=== PATIENT | female | born 1980 | race African-American/Black ===

== ENCOUNTER 2024-07-25 15:04 | Emergency (ER) | payer BC ==
[2024-07-25 16:07] LABS: Absolute Basophils 0.1 K/uL (0-0.5); Absolute Eosinophils 0.2 K/uL (0-0.5); Absolute Lymphocytes (CBC) 1.4 K/uL (0.7-4.9); Absolute Monocytes 0.4 K/uL (0.1-1.3); Absolute Neutrophil 4.4 K/uL (1.8-8.0); Basophils % 1.4 % (0-1.3); Eosinophils % 3.2 % (0-4.4); Hematocrit 31.4 % (36.0-45.0); Hemoglobin 9.8 g/dL (12.0-15.0); Lymphocytes % 21.6 % (15.3-44.8); MCH 21.9 pg (27.0-35.0); MCHC 31.2 g/dL (32.0-36.0); MCV 70.1 fL (80-100); MPV 8.3 fL (7.6-11.3); Monocytes % 5.5 % (3.3-12.3); Neutrophils % 68.3 % (41.7-73.7); Nucleated Red Blood Cells % 0.2 % (0-0); Platelets 287 thou/uL (152-406); RBC Red Blood Cell Count 4.47 M/uL (3.86-4.86); Red Cell Distribution Width 16.3 % (12.1-15.2)
[2024-07-25 16:27] LABS: Anion Gap 8.9 mEq/L (5.0-15.0); Magnesium 2.2 mg/dL (1.6-2.4); Potassium 3.9 mEq/L (3.5-5.1); Troponin High Sensitivity 12.5 pg/mL (<58.9)
[2024-07-25] MEDS ORDERED: LOSARTAN POTASSIUM 50 MG TABLET ONE (16:48)
[2024-07-25 17:33] LABS: Blood Morphology Comment NOTED (NOT SEEN); Hypochromasia 1+; Ovalocytes 1+; Platelet Estimate ADEQ; Poikilocytosis 1+; White Blood Cell Scan OK (OK)
--- NOTE | 2024-07-25 17:52 | RAD REPORT ---
EXAMINATION: ONE VIEW CHEST XR CLINICAL INDICATION: Female, 43 years old.,CHEST PAIN TECHNIQUE: Frontal chest projection is submitted. Examination is limited by patient positioning and t echnique. COMPARISON: No prior exam. FINDINGS: The lungs are well inflated and clear, although superimposition of soft tissues somewhat limits evalu ation. No pneumothorax or sizable effusion. The heart is upper limit of normal in size. Mediastinal contours are unremarkable. IMPRESSION: No acute intrathoracic abnormalities. Heart is at the upper limit of normal in size.
--- NOTE | 2024-07-25 18:53 | EDPHYS ---
Physician Documentation [facility] Name: Dulce Hernandez Age: 43 yrs Sex: Female : 1980 Arrival Date: 07/25/2024 Time: 15:04 Bed 8 Private MD: ED Physician Jean Torres HPI: 07/25 19:08 This 43 yrs old Black Female presents to ER via EMS with complaints of Chest Pain. ms3 19:08 Dulce Hernandez is a 43-year-old female who presented to the Emergency Department with ms3 chest pain. She was brought in via EMS after experiencing the pain that began last night. She initially went to a clinic where her blood pressure was recorded as 206/120 mmHg. She has a history of hypertension, which she managed previously with Losartan 100 mg daily. However, she discontinued the medication a year ago, opting for herbal remedies in an attempt to manage her blood pressure naturally. She reports that her chest pain is centrally located and exacerbates with movement, currently rating it as a 3 out of 10 in severity.. 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 - Infectious Disease History:: Denies. - Social history:: Smoking status: Patient denies any tobacco usage or history of. ROS: 19:08 Constitutional: Negative for fever, and chills. Neck: Negative for injury, pain, and ms3 swelling, 19:08 Respiratory: Negative for shortness of breath, cough, wheezing, and pleuritic chest pain, Abdomen/GI: Negative for abdominal pain, nausea, vomiting, diarrhea, and constipation, MS/Extremity: Negative for injury and deformity, Skin: Negative for injury, rash, and discoloration, 19:08 Cardiovascular: Positive for chest pain, Exam: 19:08 Constitutional: This is a well developed, well nourished patient who is awake, alert, ms3 and in no acute distress. Chest/axilla: Normal chest wall appearance and motion. Nontender with no deformity. Cardiovascular: Regular rate and rhythm with a normal S1 and S2. No gallops, murmurs, or rubs. Normal PMI, no JVD. No pulse deficits. Respiratory: Lungs have equal breath sounds bilaterally, clear to auscultation and percussion. No rales, rhonchi or wheezes noted. No increased work of breathing, no retractions or nasal flaring. Abdomen/GI: Soft, non-tender, with normal bowel sounds. No distension or tympany. No guarding or rebound. No evidence of tenderness throughout. Skin: Warm, dry with normal turgor. Normal color with no rashes, no lesions, and no evidence of cellulitis. MS/ Extremity: Pulses equal, no cyanosis. Neurovascular intact. Full, normal range of motion. Neuro: Awake and alert, GCS 15, oriented to person, place, time, and situation. Cranial nerves II-XII grossly intact. Motor strength 5/5 in all extremities. Sensory grossly intact. Cerebellar exam normal. Normal gait. 19:13 ECG was reviewed by the Attending Physician. ms3 Vital Signs: 15:30 BP 188 / 99; Pulse 71; Resp 18; Temp 97.8(TE); Pulse Ox 100% on R/A; Weight 135.17 kg; hb Height 5 ft. 5 in. ; Pain 2/10; 17:00 BP 175 / 91; Pulse 72; Resp 15; Pulse Ox 98% on R/A; hb 17:38 BP 175 / 99; Pulse 73; Resp 16; Pulse Ox 99% on R/A; hb 15:30 Body Mass Index 49.59 (135.17 kg, 165.1 cm) hb 15:30 Pain Scale: Adult hb MDM: 15:27 Medical Screening Exam initiated ms3 19:08 Differential diagnosis: abnormal EKG, acute myocardial infarction, anxiety. HEART ms3 Score: History: Slightly Suspicious (0), ECG: Normal (0), Age: < or = 45 years (0), Risk Factors: 1 or 2 risk factors (1), Troponin: < or = 1 x Normal Limit (0), Total Score = 1. Data reviewed: vital signs, nurses notes, lab test result(s), EKG, radiologic studies, and as a result, I will discharge patient. Consideration of Admission/Observation Escalation of care including admission/observation considered. HEART Score = 1.. I considered the following discharge prescriptions or medication management in the emergency department Medications were administered in the Emergency Department. See MAR. Independent interpretation of the following test(s) in the Emergency Department EKG: See my EKG interpretation above. Counseling: I had a detailed discussion with the patient and/or guardian regarding the historical points, exam findings, and any diagnostic results supporting the discharge/admit diagnosis, the need for outpatient follow up, to return to the emergency department if symptoms worsen or persist or if there are any questions or concerns that arise at home. Special discussion: Based on the patient's history, exam, and Dx evaluation, there is no indication for emergent intervention or inpatient Tx. It is understood by the patient/guardian that if the Sx's persist or worsen they need to return immediately for re-evaluation. ED course: Discussed labs, chest x-ray, EKG findings with patient. Patient given prescription for his losartan 50 mg daily. Patient to follow-up with primary care physician in 2 to 3 days for reevaluation. All questions were answered. Return precautions discussed include worsening symptoms, or any other concerns. 07/25 15:27 Order name: Basic Metabolic Panel; Complete Time: 16:43 ms3 07/25 15:27 Order name: CBC with Diff; Complete Time: 17:49 ms3 07/25 15:27 Order name: Magnesium; Complete Time: 16:43 ms3 07/25 15:27 Order name: Troponin HS; Complete Time: 16:43 ms3 07/25 17:33 Order name: CBC Smear Scan; Complete Time: 17:49 EDMS 07/25 15:27 Order name: XRAY Chest (1 view); Complete Time: 18:04 ms3 07/25 15:27 Order name: EKG; Complete Time: 15:27 ms3 07/25 15:27 Order name: Cardiac monitoring; Complete Time: 16:19 ms3 07/25 15:27 Order name: EKG - Nurse/Tech; Complete Time: 16:19 ms3 07/25 15:27 Order name: IV Saline Lock; Complete Time: 16:19 ms3 07/25 15:27 Order name: Labs collected and sent; Complete Time: 16:19 ms3 07/25 15:27 Order name: O2 Per Protocol; Complete Time: 16:19 ms3 07/25 15:27 Order name: O2 Sat Monitoring; Complete Time: 16:19 ms3 EC:13 Rate is 71 beats/min. Rhythm is regular. Right axis deviation noted. IL interval is ms3 normal. QRS interval is normal. Clinical impression: NSR w/ Non-specific ST/T Changes. Interpreted by me. Reviewed by me. Administered Medications: 16:53 Drug: Losartan PO 50 mg PO once Route: PO; hb 19:02 Follow up: Response: No adverse reaction bp Disposition Summary: 07/25/24 18:52 Discharge Ordered Notes: Location: Home ms3 Condition: Stable ms3 Diagnosis - Chest pain, unspecified ms3 - Essential (primary) hypertension ms3 Followup: ms3 - With: Heath Cormier DO - When: 2 - 3 days - Reason: Recheck today's complaints Discharge Instructions: - Discharge Summary Sheet ms3 - Nonspecific Chest Pain, Adult ms3 - Hypertension, Adult, [id number] ms3 - DASH Eating Plan ms3 Forms: - Medication Reconciliation Form ms3 - Antibiotic Education ms3 - Prescription Opioid Use ms3 - Patient Portal Instructions ms3 - Leadership Thank You Letter ms3 - Work release form rv1 Prescriptions: - losartan 50 mg Oral tablet - take 1 tablet ORAL route once; 30 tablet; Refills: 0, Product Selection ms3 Permitted Signatures: Dispatcher [employer] EDMS Candida Browne RN RN Jean Torres DO DO ms3 Mesfin Batres RN bp Corrections: (The following items were deleted from the chart) 15:27 15:27 BASIC METABOLIC PANEL+C.LAB.BRZ ordered. EDMS EDMS 15:27 15:27 CBC+H.LAB.BRZ ordered. EDMS EDMS 15:27 15:27 MAGNESIUM+C.LAB.BRZ ordered. EDMS EDMS 15:27 15:27 Troponin High Sensitivity+C.LAB.BRZ ordered. EDMS EDMS
--- NOTE | 2024-07-25 18:53 | ER ---
Nurse's Notes [facility] Name: Dulce Hernandez Age: 43 yrs Sex: Female : 1980 Arrival Date: 07/25/2024 Time: 15:04 Bed 8 Private MD: Diagnosis: Chest pain, unspecified;Essential (primary) hypertension Presentation: 07/25 15:30 Chief complaint: EMS states: Intermittent midsternal chest pain that started last hb night, became worse this afternoon. Coronavirus screen: At this time, the client does not indicate any symptoms associated with coronavirus-19. Ebola Screen: No symptoms or risks identified at this time. Initial Sepsis Screen: Does the patient meet any 2 criteria? No. Patient's initial sepsis screen is negative. Does the patient have a suspected source of infection? No. Patient's initial sepsis screen is negative. Risk Assessment: Do you want to hurt yourself or someone else? Patient reports no desire to harm self or others. Onset of symptoms was July 24, 2024. 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 - Infectious Disease History:: Denies. - Social history:: Smoking status: Patient denies any tobacco usage or history of. Screenin:15 [facility] ED Fall Risk Assessment (Adult) History of falling in the last 3 months, hb including since admission No falls in past 3 months (0 pts) Confusion or Disorientation No (0 pts) Intoxicated or Sedated No (0 pts) Impaired Gait No (0 pts) Mobility Assist Device Used No (0 pt) Altered Elimination No (0 pt) Score/Fall Risk Level 0 - 2 = Low Risk Oriented to surroundings, Maintained a safe environment, Educated pt \T\ family on fall prevention, incl call for assistance when getting out of bed. Abuse screen: Denies threats or abuse. Denies injuries from another. Nutritional screening: No deficits noted. Tuberculosis screening: No symptoms or risk factors identified. Assessment: 16:15 General: Appears in no apparent distress. Behavior is calm, cooperative. Pain: Pain hb currently is 2 out of 10 on a pain scale. Neuro: Level of Consciousness is awake, alert, obeys commands, Oriented to person, place, time, situation. Cardiovascular: Reports chest pain, Patient's skin is warm and dry. Respiratory: Respiratory effort is even, unlabored, Respiratory pattern is regular, symmetrical. GI: No signs and/or symptoms were reported involving the gastrointestinal system. : No signs and/or symptoms were reported regarding the genitourinary system. EENT: No signs and/or symptoms were reported regarding the EENT system. Derm: Skin is pink, warm \T\ dry. Musculoskeletal: No signs and/or symptoms reported regarding the musculoskeletal system. 17:00 Reassessment: Patient appears in no apparent distress at this time. Patient and/or hb family updated on plan of care and expected duration. Pain level reassessed. Patient is alert, oriented x 3, equal unlabored respirations, skin warm/dry/pink. 19:05 Pain: Pain began. cp4 Vital Signs: 15:30 BP 188 / 99; Pulse 71; Resp 18; Temp 97.8(TE); Pulse Ox 100% on R/A; Weight 135.17 kg; hb Height 5 ft. 5 in. ; Pain 2/10; 17:00 BP 175 / 91; Pulse 72; Resp 15; Pulse Ox 98% on R/A; hb 17:38 BP 175 / 99; Pulse 73; Resp 16; Pulse Ox 99% on R/A; hb 15:30 Body Mass Index 49.59 (135.17 kg, 165.1 cm) hb 15:30 Pain Scale: Adult hb ED Course: 15:09 Patient arrived in ED. mg5 15:26 Mesfin Batres, RN is Primary Nurse. bp 15:26 Duke Oconnell MD is Attending Physician. ec2 15:27 Attending Physician role handed off by Duke Oconnell MD ms3 15:27 Jean Torres DO is Attending Physician. ms3 15:58 EKG done, by ED staff, reviewed by Jean Torres DO. hb 15:58 Maintain EMS IV. Dressing intact. Good blood return noted. Site clean \T\ dry. Gauge \T\ hb site: 20 RFA. Flushed with 10 mL NS. Patient maintains SpO2 saturation greater than 95% on room air. 16:14 Triage completed. hb 16:15 Arm band placed on. hb 16:15 Patient has correct armband on for positive identification. Placed in gown. Bed in low hb position. Provided Education on: tests, result times. Client placed on continuous cardiac and pulse oximetry monitoring. NIBP monitoring applied. disability rater on. Pulse ox on. 17:33 XRAY Chest (1 view) In Process Unspecified. EDMS 18:52 Heath Cormier DO is Referral Physician. ms3 19:04 No provider procedures requiring assistance completed. cp4 19:04 intact, bleeding controlled, No redness/swelling at site. Pressure dressing applied. cp4 Administered Medications: 16:53 Drug: Losartan PO 50 mg PO once Route: PO; hb 19:02 Follow up: Response: No adverse reaction bp Medication: 16:15 VIS not applicable for this client. hb Outcome: 18:52 Discharge ordered by MD. ms3 19:04 Discharged to home ambulatory, cp4 19:04 Condition: stable 19:04 Discharge instructions given to patient, Instructed on discharge instructions, follow up and referral plans. medication usage, Demonstrated understanding of instructions, follow-up care, medications, Prescriptions given X 1, 19:31 Patient left the ED. cp4 Signatures: Dispatcher [employer] EDMS Candida Browne, DENISSE RN Mesfin Mejia, DENISSE RN Jean Deluna DO DO ms3 Carol Frost mg5 Duke Oconnell MD MD ec2 Babs Barrios cp4
[2024-07-25 21:18] VITALS: TEMP 97.8
[2024-07-25 21:20] VITALS: BP 175/99; O2SAT 99
== END 2024-07-25 19:31 | disposition home or self-care (01) ==
LOC: ER 15:04
DX: R07.9 Chest pain, unspecified (principal); I10 Essential (primary) hypertension
CPT/HCPCS: 36415; 71045; 80048; 83735; 84484; 85025; 99284